=== PATIENT | male | born 1955 | race African-American/Black ===

== ENCOUNTER 2017-09-26 15:01 | Inpatient (IN) | payer BC ==
[2017-09-26 16:21] VITALS: BMI 25.8
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
[2017-09-26] MEDS ORDERED: IBUPROFEN 400 MG TABLET (FP) PO PRN (19:09)
[2017-09-26] MEDS ORDERED: P-EPHED 60MG/TRIPROLIDI 2.5MG TABLET PO PRN (19:09)
[2017-09-26] MEDS ORDERED: NICOTINE POLACRILEX 2 MG GUM BUC PRN (19:09)
[2017-09-26] MEDS ORDERED: guaiFENesin/D-METHORPHAN HB 10 ML UNIT-DOSE CUPS PO PRN (19:09)
[2017-09-26] MEDS ORDERED: ACETAMINOPHEN 325 MG TABLET (FP) PO PRN (19:09)
[2017-09-26] MEDS ORDERED: MAGNESIUM HYDROX 2400MG/30ML ORAL SUSPENSION 30 ML CUP PO PRN (19:09)
[2017-09-26] MEDS ORDERED: MAG HYDROX/AL HYDROX/SIMETH 30 ML UNIT-DOSE CUP PO PRN (19:09)
[2017-09-26] MEDS ORDERED: LOPERAMIDE HCL 2 MG CAPSULE PO PRN (19:09)
[2017-09-26] MEDS ORDERED: chlordiazePOXIDE HCL 25 MG CAPSULE PO PRN (19:09)
[2017-09-26] MEDS ORDERED: hydrOXYzine PAMOATE 25 MG CAPSULE (FP) PO PRN (19:09)
[2017-09-26] MEDS ORDERED: MENTHOL/PHENOL 1 EACH UD MM PRN (19:09)
[2017-09-26] MEDS ORDERED: MAGNESIUM CITRATE 300 ML BOTTLE PO PRN (19:14)
[2017-09-26] MEDS ORDERED: chlordiazePOXIDE HCL 25 MG CAPSULE PO ONE (19:15)
[2017-09-26] MEDS ORDERED: MELATONIN 5 MG TABLETS PO PRN (22:00)
[2017-09-26] MEDS ORDERED: PROPRANOLOL HCL 10 MG PO SCH (22:00)
[2017-09-26] MEDS: THIAMINE HCL 100 MG TABLET (FP) PO SCH (22:13)
[2017-09-26] MEDS: chlordiazePOXIDE HCL 25 MG CAPSULE PO SCH (22:14)
[2017-09-26] MEDS: LACTULOSE 20 GM/30 ML UDC (FOR ORAL USE ONLY) PO SCH (22:14)
[2017-09-27] MEDS: LACTULOSE 20 GM/30 ML UDC (FOR ORAL USE ONLY) PO SCH ×3 (05:56→22:12)
[2017-09-27] MEDS: chlordiazePOXIDE HCL 25 MG CAPSULE PO SCH ×4 (05:56→22:12)
[2017-09-27] MEDS ORDERED: PATIENT'S OWN MEDICATION (NON-FORMULARY) (Famotidine [Pepcid -] 20 MG) PO SCH (10:00)
[2017-09-27] MEDS ORDERED: ASPIRIN PO SCH (10:00)
[2017-09-27 10:01] LABS: HEMATOCRIT 34.7 % (35.4-49); HEMOGLOBIN 11.4 GM/dL (11.7-16.9); MCH 30.8 pg (25.7-33.7); MCHC 32.9 g/dl (32.0-35.9); MEAN CELL VOLUME 93.6 fl (80-96); PLATELET COUNT 228 K/MM3 (134-434); RBC 3.71 M/mm3 (4.00-5.60); RDW 18.3 % (11.9-15.9); WHITE BLOOD COUNT 5.1 K/mm3 (4.0-10.0)
[2017-09-27] MEDS: RANITIDINE HCL 150 MG TABLET (FP) PO SCH (10:09)
[2017-09-27] MEDS: ASPIRIN COATED 81 MG TABLET.EC PO SCH (10:09)
[2017-09-27] MEDS: NICOTINE 14 MG/24 HOURS TOPICAL PATCH TD SCH (10:09)
[2017-09-27] MEDS: PRENATAL VITAMINS W/ FOLIC ACID TABLET (FP) PO SCH (10:09)
[2017-09-27 10:22] LABS: ALBUMIN 3.1 g/dl (3.4-5.0); ANION GAP 8 (8-16); BLOOD UREA NITROGEN 8 mg/dL (7-18); CALCIUM 9.1 mg/dL (8.5-10.1); CHLORIDE 108 mmol/L (98-107); CO2 26 mmol/L (21-32); GLUCOSE,RANDOM 82 mg/dL (74-106); POTASSIUM 3.2 mmol/L (3.5-5.1); SGPT/ALT 36 U/L (12-78); SODIUM 142 mmol/L (136-145)
[2017-09-27 10:25] LABS: ALK PHOS 112 U/L (45-117); BILIRUBIN,TOTAL 1.9 mg/dL (0.2-1.0); CREATININE 0.9 mg/dL (0.7-1.3); SGOT/AST 58 U/L (15-37); TOT PROT 7.5 g/dl (6.4-8.2)
--- NOTE | 2017-09-27 13:22 | CONSULT ---
[facility] Psychiatric Consult - Data Date of interview: 09/27/17 Admission source: [facility] Identifying data: Pt. is a 62 year old male, single, father of one, receiving SSI, and currently living with his sister and brother in law. This is patient's first admission to rehab. Pt. admitted to for alcohol dependence. Substance Abuse History: Following information confirmed with Mr. Bueno: Smoking Cessation. Smoking history: Current every day smoker. Have you smoked in the past 12 months: Yes. Aproximately how many cigarettes per day: 4. Hx Chewing Tobacco Use: No. Initiated information on smoking cessation: Yes. ' Breaking Loose' booklet given: 09/26/17. - Substance & Tx. History. Hx Alcohol Use: Yes. Hx Substance Use: Yes. Substance Use Type: Alcohol. Hx Substance Use Treatment: No. - Substances Abused. Alcohol. Route: Oral. Frequency: Daily. Amount used: liquor- 1 pint. Age of first use: 20. Date of Last Use: 09/25/17 Medical History: CVA, three years ago with mild left side weakness, Cirrhoiss of the liver. Psychiatric History: Pt. denies h/o psychiatric hospitalization, outpatient treatment, and suicide attempts. Physical/Sexual Abuse/Trauma History: Denies. Mental Status Exam - Mental Status Exam Alert and Oriented to: Time, Place, Person Cognitive Function: Good Patient Appearance: Well Groomed Mood: Euthymic Affect: Mood Congruent Patient Behavior: Appropriate, Cooperative Speech Pattern: Clear, Appropriate Voice Loudness: Normal Thought Process: Goal Oriented Thought Disorder: Not Present Hallucinations: Denies Suicidal Ideation: Denies Homicidal Ideation: Denies Insight/Judgement: Poor Sleep: Fair Appetite: Fair Muscle strength/Tone: Normal Gait/Station: Normal Psychiatric Findings - Problem List (Descanso 1, 2,3) (1) Alcohol dependence with withdrawal Current Visit: Yes Status: Acute - Initial Treatment Plan Initial Treatment Plan: Psychoeducation provided. Detoxification in progress. Observation.
--- NOTE | 2017-09-27 13:32 | EKG ---
Test Reason : Blood Pressure : / mmHG Vent. Rate : 068 BPM Atrial Rate : 068 BPM P-R Int : 192 ms QRS Dur : 096 ms QT Int : 412 ms P-R-T Axes : -03 013 028 degrees QTc Int : 438 ms NORMAL SINUS RHYTHM VOLTAGE CRITERIA FOR LEFT VENTRICULAR HYPERTROPHY CANNOT RULE OUT SEPTAL INFARCT , AGE UNDETERMINED ABNORMAL ECG NO PREVIOUS ECGS AVAILABLE Confirmed by DEEPTHI PATTERSON MD ([id number]) on 09/27/2017 1:32:09 PM Referred By: Confirmed By:DEEPTHI PATTERSON MD
--- NOTE | 2017-09-27 13:32 | PN ---
[facility] CIWA - CIWA Score Nausea/Vomitin-No Nausea/No Vomiting Muscle Tremors: 4-Moderate,w/Arms Extend Anxiety: 4-Mod. Anxious/Guarded Agitation: 3 Paroxysmal Sweats: 2 Orientation: 0-Oriented Tacttile Disturbances: 2-Mild Itch/Numbness/Burn Auditory Disturbances: 2-Mild Harshness/Frighten Visual Disturbances: 0-None Headache: 0-None Present CIWA-Ar Total Score: 17 S Progress Note (SOAP) Subjective: Fatigue, Anxious, Sweating, Tremors. Objective: PATIENT A & O X 3, OBSERVED AMBULATING ON UNIT. NO ACUTE DISTRESS. 09/27/17 13:28 Vital Signs Temperature 97.8 F 09/27/17 13:05 Pulse Rate 75 09/27/17 13:05 Respiratory Rate 18 09/27/17 13:05 Blood Pressure 137/80 09/27/17 13:05 O2 Sat by Pulse Oximetry (%) Laboratory Tests 09/27/17 09/27/17 07:00 07:00 WBC 5.1 RBC 3.71 L Hgb 11.4 L Hct 34.7 L MCV 93.6 MCH 30.8 MCHC 32.9 RDW 18.3 H Plt Count 228 MPV 9.0 Sodium 142 Potassium 3.2 L Chloride 108 H Carbon Dioxide 26 Anion Gap 8 BUN 8 Creatinine 0.9 Creat Clearance w eGFR > 60 Random Glucose 82 Calcium 9.1 Total Bilirubin 1.9 H AST 58 H ALT 36 Alkaline Phosphatase 112 Total Protein 7.5 Albumin 3.1 L LABS NOTED. Assessment: 09/27/17 13:28 WITHDRAWAL SYMPTOMS. HYPOKALEMIA. 09/27/17 13:31 Plan: CONTINUE DETOX. K-DUR, 20 MEQ PO BID. REPEAT TOTAL BILIRUBIN LEVEL ON 09/29/2017 FOR ELEVATED ADMISSION LEVEL. INCREASE DAILY PO FLUID INTAKE.
[2017-09-27] MEDS ORDERED: POTASSIUM CHLORIDE TABS 20 MEQ TABLET.ER (FP) PO ONE (14:00)
[2017-09-27] MEDS: POTASSIUM CHLORIDE TABS 20 MEQ TABLET.ER (FP) PO SCH (17:37)
[2017-09-27 18:21] LABS: URINE APPEARANCE CLEAR; URINE BILIRUBIN NEGATIVE (<2.0 mg/dL); URINE BLOOD NEGATIVE (NEGATIVE); URINE COLOR LTYELLOW; URINE GLUCOSE (UA) NEGATIVE (NEGATIVE); URINE KETONE NEGATIVE (NEGATIVE); URINE LEUK ESTERASE NEGATIVE (NEGATIVE); URINE NITRITE NEGATIVE (NEGATIVE); URINE PROTEIN NEGATIVE (NEGATIVE); URINE UROBILINOGEN 4.0 E.U/dl mg/dL (0.2-1.0)
[2017-09-27] MEDS: THIAMINE HCL 100 MG TABLET (FP) PO SCH (22:12)
[2017-09-28] MEDS: LACTULOSE 20 GM/30 ML UDC (FOR ORAL USE ONLY) PO SCH ×3 (05:11→23:11)
[2017-09-28] MEDS: chlordiazePOXIDE HCL 25 MG CAPSULE PO SCH ×3 (05:11→19:05)
[2017-09-28] MEDS: RANITIDINE HCL 150 MG TABLET (FP) PO SCH (10:19)
[2017-09-28] MEDS: PRENATAL VITAMINS W/ FOLIC ACID TABLET (FP) PO SCH (10:19)
[2017-09-28] MEDS: ASPIRIN COATED 81 MG TABLET.EC PO SCH (10:19)
[2017-09-28] MEDS: POTASSIUM CHLORIDE TABS 20 MEQ TABLET.ER (FP) PO SCH ×2 (10:20→19:05)
[2017-09-28] MEDS: NICOTINE 14 MG/24 HOURS TOPICAL PATCH TD SCH (10:20)
--- NOTE | 2017-09-28 12:16 | PN ---
[facility] CIWA - CIWA Score Nausea/Vomitin-No Nausea/No Vomiting Muscle Tremors: 4-Moderate,w/Arms Extend Anxiety: 3 Agitation: 2 Paroxysmal Sweats: No Perspiration Orientation: 2-Disoriented Date<2 days Tacttile Disturbances: 2-Mild Itch/Numbness/Burn Auditory Disturbances: 2-Mild Harshness/Frighten Visual Disturbances: 0-None Headache: 0-None Present CIWA-Ar Total Score: 15 BHS Progress Note (SOAP) Subjective: Tremors, Anxious, Fatigue. Objective: PATIENT A & O X 2 (UNCERTAIN ABOUT CURRENT DAY / DATE). NO ACUTE DISTRESS. 09/28/17 12:17 Vital Signs Temperature 97.3 F L 09/28/17 09:04 Pulse Rate 69 09/28/17 09:04 Respiratory Rate 16 09/28/17 09:04 Blood Pressure 131/89 09/28/17 09:04 O2 Sat by Pulse Oximetry (%) Laboratory Tests 09/27/17 09/27/17 09/27/17 07:00 07:00 07:00 WBC 5.1 RBC 3.71 L Hgb 11.4 L Hct 34.7 L MCV 93.6 MCH 30.8 MCHC 32.9 RDW 18.3 H Plt Count 228 MPV 9.0 Sodium 142 Potassium 3.2 L Chloride 108 H Carbon Dioxide 26 Anion Gap 8 BUN 8 Creatinine 0.9 Creat Clearance w eGFR > 60 Random Glucose 82 Calcium 9.1 Total Bilirubin 1.9 H AST 58 H ALT 36 Alkaline Phosphatase 112 Total Protein 7.5 Albumin 3.1 L Urine Color Urine Appearance Urine pH Ur Specific [place] Urine Protein Urine Glucose (UA) Urine Ketones Urine Blood Urine Nitrite Urine Bilirubin Urine Urobilinogen Ur Leukocyte Esterase RPR Titer Nonreactive 09/27/17 14:20 WBC RBC Hgb Hct MCV MCH MCHC RDW Plt Count MPV Sodium Potassium Chloride Carbon Dioxide Anion Gap BUN Creatinine Creat Clearance w eGFR Random Glucose Calcium Total Bilirubin AST ALT Alkaline Phosphatase Total Protein Albumin Urine Color Ltyellow Urine Appearance Clear Urine pH 7.0 Ur Specific [place] 1.003 Urine Protein Negative Urine Glucose (UA) Negative Urine Ketones Negative Urine Blood Negative Urine Nitrite Negative Urine Bilirubin Negative Urine Urobilinogen 4.0 e.u/dl Ur Leukocyte Esterase Negative RPR Titer LABS NOTED. 09/28/17 12:18 Assessment: 09/28/17 12:18 WITHDRAWAL SYMPTOMS. HYPOKALEMIA. 09/28/17 12:19 Plan: CONTINUE DETOX. CONTINUE K-DUR. ENCOURAGE AMBULATION.
[2017-09-28] MEDS: chlordiazePOXIDE 5 MG CAPSULE PO SCH (23:11)
[2017-09-28] MEDS: THIAMINE HCL 100 MG TABLET (FP) PO SCH (23:11)
[2017-09-29] MEDS: chlordiazePOXIDE 5 MG CAPSULE PO SCH ×3 (05:19→17:46)
[2017-09-29] MEDS: RANITIDINE HCL 150 MG TABLET (FP) PO SCH (10:23)
[2017-09-29] MEDS: LACTULOSE 20 GM/30 ML UDC (FOR ORAL USE ONLY) PO SCH ×4 (10:23→22:43)
[2017-09-29] MEDS: ASPIRIN COATED 81 MG TABLET.EC PO SCH (10:23)
[2017-09-29] MEDS: POTASSIUM CHLORIDE TABS 20 MEQ TABLET.ER (FP) PO SCH ×2 (10:23→17:46)
[2017-09-29] MEDS: PRENATAL VITAMINS W/ FOLIC ACID TABLET (FP) PO SCH (10:23)
[2017-09-29] MEDS: NICOTINE 14 MG/24 HOURS TOPICAL PATCH TD SCH (10:24)
--- NOTE | 2017-09-29 14:36 | PN ---
BHS Progress Note (SOAP) Subjective: Constipation, Tremors, Fatigue. Objective: PATIENT A & O X 2 (UNCERTAIN ABOUT CURRENT DAY / DATE). PATIENT OBSERVED AMBULATING ON UNIT. NO ACUTE DISTRESS. 09/29/17 14:36 Vital Signs Temperature 96.5 F L 09/29/17 11:05 Pulse Rate 67 09/29/17 11:05 Respiratory Rate 18 09/29/17 11:05 Blood Pressure 120/84 09/29/17 11:05 O2 Sat by Pulse Oximetry (%) Laboratory Tests 09/27/17 09/27/17 09/27/17 07:00 07:00 07:00 WBC 5.1 RBC 3.71 L Hgb 11.4 L Hct 34.7 L MCV 93.6 MCH 30.8 MCHC 32.9 RDW 18.3 H Plt Count 228 MPV 9.0 Sodium 142 Potassium 3.2 L Chloride 108 H Carbon Dioxide 26 Anion Gap 8 BUN 8 Creatinine 0.9 Creat Clearance w eGFR > 60 Random Glucose 82 Calcium 9.1 Total Bilirubin 1.9 H AST 58 H ALT 36 Alkaline Phosphatase 112 Ammonia Total Protein 7.5 Albumin 3.1 L Urine Color Urine Appearance Urine pH Ur Specific [place] Urine Protein Urine Glucose (UA) Urine Ketones Urine Blood Urine Nitrite Urine Bilirubin Urine Urobilinogen Ur Leukocyte Esterase RPR Titer Nonreactive 09/27/17 09/28/17 09/29/17 14:20 14:15 07:50 WBC RBC Hgb Hct MCV MCH MCHC RDW Plt Count MPV Sodium Potassium Chloride Carbon Dioxide Anion Gap BUN Creatinine Creat Clearance w eGFR Random Glucose Calcium Total Bilirubin 1.2 H D AST ALT Alkaline Phosphatase Ammonia 118.21 H Total Protein Albumin Urine Color Ltyellow Urine Appearance Clear Urine pH 7.0 Ur Specific [place] 1.003 Urine Protein Negative Urine Glucose (UA) Negative Urine Ketones Negative Urine Blood Negative Urine Nitrite Negative Urine Bilirubin Negative Urine Urobilinogen 4.0 e.u/dl Ur Leukocyte Esterase Negative RPR Titer LABS NOTED. RESULTS OF AMMONIA AND REPEAT TOTAL BILIRUBIN LEVELS NOTED. 09/29/17 14:38 Assessment: 09/29/17 14:38 WITHDRAWAL SYMPTOMS. HYPOKALEMIA. HYPERAMMONEMIA. 09/29/17 14:38 Plan: CONTINUE DETOX. CONTINUE K-DUR. CONTINUE LACTULOSE (PREVIOUSLY INCREASED TO QID).
[2017-09-29] MEDS: THIAMINE HCL 100 MG TABLET (FP) PO SCH (22:43)
[2017-09-29] MEDS: chlordiazePOXIDE HCL 10 MG CAPSULE PO SCH (22:43)
[2017-09-30] MEDS: chlordiazePOXIDE HCL 10 MG CAPSULE PO SCH ×2 (05:25→10:17)
--- NOTE | 2017-09-30 08:48 | DS ---
[facility] Detox Discharge Summary Admission Date: 09/26/17 Discharge Date: 09/30/17 - History Present History: Alcohol Dependence - Physical Exam Results Vital Signs: Vital Signs Temperature 96.4 F L 09/30/17 06:07 Pulse Rate 68 09/30/17 06:07 Respiratory Rate 16 09/30/17 06:07 Blood Pressure 133/86 09/30/17 06:07 O2 Sat by Pulse Oximetry (%) - Treatment Hospital Course: Detox Protocol Followed, Detoxed Safely, Responded well, Discharged Condition Good, Rehab Referral Accepted - Medication Discharge Medications: Ambulatory Orders Aspirin [ASA -] 81 mg PO DAILY 09/26/17 Famotidine [Pepcid -] 20 mg PO DAILY 09/26/17 Lactulose (Oral Use) [Cephulac -] 20 gm PO TID 09/26/17 Propranolol HCl 10 mg PO TID 09/26/17 - Diagnosis (1) Alcohol dependence with withdrawal Current Visit: Yes Status: Chronic Qualifiers: Complication of substance-induced condition: uncomplicated Qualified Code(s ): F10.230 - Alcohol dependence with withdrawal, uncomplicated (2) Hyperammonemia Current Visit: Yes Status: Acute (3) Hypokalemia Current Visit: Yes Status: Acute (4) Constipation Current Visit: Yes Status: Chronic Qualifiers: Constipation type: slow transit constipation Qualified Code(s): K59.01 - Slow transit constipation (5) Hepatitis B Current Visit: Yes Status: Chronic Qualifiers: Viral hepatitis chronicity: unspecified Hepatic coma status: without hepatic coma Hepatitis delta agent presence: without delta-agent Qualified Code(s): B19.10 - Unspecified viral hepatitis B without hepatic coma (6) History of CVA in adulthood Current Visit: Yes Status: Chronic (7) Hypertension Current Visit: Yes Status: Chronic Qualifiers: Hypertension type: essential hypertension Qualified Code(s): I10 - Essential (primary) hypertension (8) Liver cirrhosis Current Visit: Yes Status: Chronic Qualifiers: Hepatic cirrhosis type: unspecified hepatic cirrhosis Ascites presence: without ascites Qualified Code(s): K74.60 - Unspecified cirrhosis of liver - AMA Did Patient Leave Against Medical Advice: No
[2017-09-30] MEDS: POTASSIUM CHLORIDE TABS 20 MEQ TABLET.ER (FP) PO SCH ×2 (10:17→17:31)
[2017-09-30] MEDS: PRENATAL VITAMINS W/ FOLIC ACID TABLET (FP) PO SCH (10:17)
[2017-09-30] MEDS: RANITIDINE HCL 150 MG TABLET (FP) PO SCH (10:17)
[2017-09-30] MEDS: ASPIRIN COATED 81 MG TABLET.EC PO SCH (10:17)
[2017-09-30] MEDS: LACTULOSE 20 GM/30 ML UDC (FOR ORAL USE ONLY) PO SCH ×4 (10:17→23:14)
[2017-09-30] MEDS: NICOTINE 14 MG/24 HOURS TOPICAL PATCH TD SCH (10:17)
--- NOTE | 2017-09-30 10:35 | PN ---
BHS Progress Note Note: pt will be d/c tomorrow; pt appears too sluggish to go home. ammonia level repeated. f/u on ammonia level continue lactulose as ordered.
[2017-09-30] MEDS: THIAMINE HCL 100 MG TABLET (FP) PO SCH (23:14)
[2017-10-01 09:24] VITALS: BP 116/87; PULSE 93; TEMP 96.3
[2017-10-01] MEDS: LACTULOSE 20 GM/30 ML UDC (FOR ORAL USE ONLY) PO SCH (10:09)
[2017-10-01] MEDS: ASPIRIN COATED 81 MG TABLET.EC PO SCH (10:09)
[2017-10-01] MEDS: NICOTINE 14 MG/24 HOURS TOPICAL PATCH TD SCH (10:09)
[2017-10-01] MEDS: PRENATAL VITAMINS W/ FOLIC ACID TABLET (FP) PO SCH (10:09)
[2017-10-01] MEDS: RANITIDINE HCL 150 MG TABLET (FP) PO SCH (10:09)
[2017-10-01] MEDS: POTASSIUM CHLORIDE TABS 20 MEQ TABLET.ER (FP) PO SCH (10:09)
--- NOTE | 2017-10-01 16:12 | PN ---
BHS Progress Note (SOAP) Subjective: Patient denies current Detox symptoms and reports that he feels well overall. Objective: PATIENT A & O X 3, OBSERVED AMBULATING ON UNIT. NO ACUTE DISTRESS. 10/01/17 16:10 Vital Signs Temperature 96.3 F L 10/01/17 09:24 Pulse Rate 93 H 10/01/17 09:24 Respiratory Rate 16 10/01/17 09:24 Blood Pressure 116/87 10/01/17 09:24 O2 Sat by Pulse Oximetry (%) Laboratory Tests 09/27/17 09/27/17 09/27/17 07:00 07:00 07:00 WBC 5.1 RBC 3.71 L Hgb 11.4 L Hct 34.7 L MCV 93.6 MCH 30.8 MCHC 32.9 RDW 18.3 H Plt Count 228 MPV 9.0 Sodium 142 Potassium 3.2 L Chloride 108 H Carbon Dioxide 26 Anion Gap 8 BUN 8 Creatinine 0.9 Creat Clearance w eGFR > 60 Random Glucose 82 Calcium 9.1 Total Bilirubin 1.9 H AST 58 H ALT 36 Alkaline Phosphatase 112 Ammonia Total Protein 7.5 Albumin 3.1 L Urine Color Urine Appearance Urine pH Ur Specific [place] Urine Protein Urine Glucose (UA) Urine Ketones Urine Blood Urine Nitrite Urine Bilirubin Urine Urobilinogen Ur Leukocyte Esterase RPR Titer Nonreactive 09/27/17 09/28/17 09/29/17 14:20 14:15 07:50 WBC RBC Hgb Hct MCV MCH MCHC RDW Plt Count MPV Sodium Potassium Chloride Carbon Dioxide Anion Gap BUN Creatinine Creat Clearance w eGFR Random Glucose Calcium Total Bilirubin 1.2 H D AST ALT Alkaline Phosphatase Ammonia 118.21 H Total Protein Albumin Urine Color Ltyellow Urine Appearance Clear Urine pH 7.0 Ur Specific [place] 1.003 Urine Protein Negative Urine Glucose (UA) Negative Urine Ketones Negative Urine Blood Negative Urine Nitrite Negative Urine Bilirubin Negative Urine Urobilinogen 4.0 e.u/dl Ur Leukocyte Esterase Negative RPR Titer 09/30/17 Unknown WBC RBC Hgb Hct MCV MCH MCHC RDW Plt Count MPV Sodium Potassium Chloride Carbon Dioxide Anion Gap BUN Creatinine Creat Clearance w eGFR Random Glucose Calcium Total Bilirubin AST ALT Alkaline Phosphatase Ammonia 75 H Total Protein Albumin Urine Color Urine Appearance Urine pH Ur Specific [place] Urine Protein Urine Glucose (UA) Urine Ketones Urine Blood Urine Nitrite Urine Bilirubin Urine Urobilinogen Ur Leukocyte Esterase RPR Titer LABS NOTED. Assessment: 10/01/17 16:11 COMPLETION OF DETOX REGIMEN. Plan: PATIENT SCHEDULED FOR DISCHARGE FROM DETOX UNIT TODAY.
--- NOTE | 2017-10-01 16:18 | DS ---
[facility] Detox Discharge Summary Admission Date: 09/26/17 Discharge Date: 10/01/17 - History Present History: Alcohol Dependence Additional Comments: PATIENT GOING TO [facility] ([place] FOR AFTERCARE. TRANSPORTATION PROVIDED TO TAKE PATIENT DIRECTLY TO [facility]. PATIENT UNABLE TO RECALL NAME OR LOCATION OF CHIEF DEVELOPMENT OFFICER AT THIS TIME (REPORTS THAT HIS SISTER USUALLY TAKES HIM TO MEDICAL APPOINTMENTS), BUT PATIENT ADVISED TO FOLLOW -UP WITH CHIEF DEVELOPMENT OFFICER AFTER DISCHARGE FROM DETOX FOR GENERAL MEDICAL ASSESSMENT AND FOR ELEVATED AMMONIA LEVEL WHILE ADMITTED FOR DETOX. COPIES OF ALL LABS DRAWN WHILE ADMITTED FOR DETOX GIVEN TO PATIENT A TIME OF DISCHARGE FROM DETOX UNIT. PATIENT WAS DISCHARGED FROM DETOX UNIT IN STABLE MEDICAL CONDITION. Pertinent Past History: Hep B, Cirrhosis of Liver, History of CVA w/ Right-sided weakness, HTN, Constipation, Hyperammonemia, Hypokalemia. - Physical Exam Results Vital Signs: Vital Signs Temperature 96.3 F L 10/01/17 09:24 Pulse Rate 93 H 10/01/17 09:24 Respiratory Rate 16 10/01/17 09:24 Blood Pressure 116/87 10/01/17 09:24 O2 Sat by Pulse Oximetry (%) Pertinent Admission Physical Exam Findings: WITHDRAWAL SYMPTOMS. Laboratory Tests 09/27/17 09/27/17 09/27/17 07:00 07:00 07:00 WBC 5.1 RBC 3.71 L Hgb 11.4 L Hct 34.7 L MCV 93.6 MCH 30.8 MCHC 32.9 RDW 18.3 H Plt Count 228 MPV 9.0 Sodium 142 Potassium 3.2 L Chloride 108 H Carbon Dioxide 26 Anion Gap 8 BUN 8 Creatinine 0.9 Creat Clearance w eGFR > 60 Random Glucose 82 Calcium 9.1 Total Bilirubin 1.9 H AST 58 H ALT 36 Alkaline Phosphatase 112 Ammonia Total Protein 7.5 Albumin 3.1 L Urine Color Urine Appearance Urine pH Ur Specific [place] Urine Protein Urine Glucose (UA) Urine Ketones Urine Blood Urine Nitrite Urine Bilirubin Urine Urobilinogen Ur Leukocyte Esterase RPR Titer Nonreactive 09/27/17 09/28/17 09/29/17 14:20 14:15 07:50 WBC RBC Hgb Hct MCV MCH MCHC RDW Plt Count MPV Sodium Potassium Chloride Carbon Dioxide Anion Gap BUN Creatinine Creat Clearance w eGFR Random Glucose Calcium Total Bilirubin 1.2 H D AST ALT Alkaline Phosphatase Ammonia 118.21 H Total Protein Albumin Urine Color Ltyellow Urine Appearance Clear Urine pH 7.0 Ur Specific [place] 1.003 Urine Protein Negative Urine Glucose (UA) Negative Urine Ketones Negative Urine Blood Negative Urine Nitrite Negative Urine Bilirubin Negative Urine Urobilinogen 4.0 e.u/dl Ur Leukocyte Esterase Negative RPR Titer 09/30/17 Unknown WBC RBC Hgb Hct MCV MCH MCHC RDW Plt Count MPV Sodium Potassium Chloride Carbon Dioxide Anion Gap BUN Creatinine Creat Clearance w eGFR Random Glucose Calcium Total Bilirubin AST ALT Alkaline Phosphatase Ammonia 75 H Total Protein Albumin Urine Color Urine Appearance Urine pH Ur Specific [place] Urine Protein Urine Glucose (UA) Urine Ketones Urine Blood Urine Nitrite Urine Bilirubin Urine Urobilinogen Ur Leukocyte Esterase RPR Titer LABS NOTED. - Treatment Hospital Course: Detox Protocol Followed, Detoxed Safely, Responded well, Discharged Condition Good Patient has Accepted a Rehab Referral to: PATIENT GOING TO [facility] FOR AFTERCARE. - Medication Discharge Medications: Ambulatory Orders Aspirin [ASA -] 81 mg PO DAILY 09/26/17 Famotidine [Pepcid -] 20 mg PO DAILY 09/26/17 Lactulose (Oral Use) [Cephulac -] 20 gm PO TID 09/26/17 Propranolol HCl 10 mg PO TID 09/26/17 - Diagnosis (1) Alcohol dependence with withdrawal Status: Chronic Qualifiers: Complication of substance-induced condition: uncomplicated Qualified Code(s ): F10.230 - Alcohol dependence with withdrawal, uncomplicated (2) Constipation Status: Chronic Qualifiers: Constipation type: slow transit constipation Qualified Code(s): K59.01 - Slow transit constipation (3) Hepatitis B Status: Chronic Qualifiers: Viral hepatitis chronicity: unspecified Hepatic coma status: without hepatic coma Hepatitis delta agent presence: without delta-agent Qualified Code(s): B19.10 - Unspecified viral hepatitis B without hepatic coma (4) History of CVA in adulthood Status: Chronic (5) Hypertension Status: Chronic Qualifiers: Hypertension type: essential hypertension Qualified Code(s): I10 - Essential (primary) hypertension (6) Liver cirrhosis Status: Chronic Qualifiers: Hepatic cirrhosis type: unspecified hepatic cirrhosis Ascites presence: without ascites Qualified Code(s): K74.60 - Unspecified cirrhosis of liver (7) Hyperammonemia Status: Acute (8) Hypokalemia Status: Acute - AMA Did Patient Leave Against Medical Advice: No
== END 2017-10-01 11:52 | disposition home or self-care (01) | DRG 775 ==
LOC: YASAS 15:01 → Y3N 18:05
PROVIDERS: ADMIT Internal Medicine; ATTEND Internal Medicine
PROC: HZ2ZZZZ Detoxification Services for Substance Abuse Treatment (ICD-10-PCS; principal; 2017-09-26)
DX: F10.230 Alcohol dependence with withdrawal, uncomplicated (principal); I10 Essential (primary) hypertension; E87.6 Hypokalemia; E72.20 Disorder of urea cycle metabolism, unspecified; K74.60 Unspecified cirrhosis of liver; K59.01 Slow transit constipation; B19.10 Unspecified viral hepatitis B without hepatic coma; I69.854 Hemiplegia and hemiparesis following other cerebrovascular disease affecting left non-dominant side
CPT/HCPCS: 36415; 80053; 81003; 82140; 82247; 85027; 86593; 93005; 93010